=== PATIENT | male | born 1980 | race Caucasian/White ===

== ENCOUNTER 2024-02-13 07:31 | Emergency (ER) | payer BC, OTHER ==
[~2024-02-13] VITALS: Ht 167.6 cm; Wt 121.2 kg
[2024-02-13 07:32] VITALS: BP 141/86; PULSE 96; RESP 18; TEMP 97.8; O2SAT 95
[2024-02-13 08:16] LABS: APPEARANCE,URINE CLEAR (CLEAR); BILIRUBIN,URINE 1+ (NEGATIVE); BLOOD, URINE NEGATIVE (NEGATIVE); COLOR,URINE YELLOW (YELLOW); LEUKOCYTE ESTERASE ,URINE NEGATIVE (NEGATIVE); NITRITE, URINE POSITIVE (NEGATIVE); PROTEIN,URINE 1+ (NEGATIVE); UGLUCOSE 2+ (NEGATIVE); UROBILINOGEN,URINE 0.2 EU/dL (0.2 - 1)
[2024-02-13 08:29] LABS: ICTOTEST NEGATIVE (NEGATIVE)
[2024-02-13 08:30] LABS: BACTERIA,URINE FEW /HPF (None Seen); RBC,URINE 0-5 /HPF (0-5); WBC,URINE 0-5 /HPF (0-5)
[2024-02-13 08:31] LABS: MUCUS,URINE 1+ /LPF (None Seen); SQUAMOUS EPITHELIAL CELL,UR 4-10 (MOD) /LPF (0-3 (FEW))
[2024-02-13] MEDS ORDERED: NAPR-1704 PO (08:57)
[2024-02-13] MEDS ORDERED: SULF-59 PO (08:57)
== END 2024-02-13 09:04 | disposition home or self-care (01) ==
LOC: MED 07:31
DX: M75.22 Bicipital tendinitis, left shoulder (principal); E11.9 Type 2 diabetes mellitus without complications; Z79.1 Long term (current) use of non-steroidal anti-inflammatories (NSAID); Z79.899 Other long term (current) drug therapy
CPT/HCPCS: 73030; 81001; 87491; 93005; 99285

== ENCOUNTER 2024-04-14 14:06 | Emergency (ER) | payer BC ==
[~2024-04-14] VITALS: Ht 160 cm; Wt 119.7 kg
[~2024-04-14 14:06] MED LIST: NAPR-1704 PO; SULF-59 PO
[2024-04-14 14:07] VITALS: BP 146/95; PULSE 101; RESP 15; TEMP 98; O2SAT 94
[2024-04-14 15:01] LABS: APPEARANCE,URINE CLEAR (CLEAR); BILIRUBIN,URINE NEGATIVE (NEGATIVE); BLOOD, URINE NEGATIVE (NEGATIVE); COLOR,URINE YELLOW (YELLOW); LEUKOCYTE ESTERASE ,URINE NEGATIVE (NEGATIVE); NITRITE, URINE NEGATIVE (NEGATIVE); PH,URINE 6.5 (5.0-9.0); PROTEIN,URINE TRACE (NEGATIVE); UGLUCOSE TRACE (NEGATIVE); UROBILINOGEN,URINE 0.2 EU/dL (0.2 - 1)
[2024-04-14] MEDS ORDERED: PRED20TA5 PO (15:48)
[2024-04-14] MEDS ORDERED: IBUP-2213 PO (15:48)
[2024-04-14 15:54] VITALS: BP 146/95; PULSE 101; RESP 15; TEMP 98; O2SAT 94
== END 2024-04-14 15:54 | disposition home or self-care (01) ==
LOC: MED 14:06
DX: R10.9 Unspecified abdominal pain (principal); R05.9 Cough, unspecified; R03.0 Elevated blood-pressure reading, without diagnosis of hypertension; Z79.899 Other long term (current) drug therapy
CPT/HCPCS: 81003; 99283